=== PATIENT | female | born 1965 | race Two or more races ===

== ENCOUNTER 2019-04-19 17:27 | Emergency (ER) | payer SELFPAY ==
[~2019-04-19] VITALS: Ht 170.2 cm; Wt 79.4 kg
[~2019-04-19 17:27] MED LIST: OXYC1TAB15 PO
[2019-04-19 17:50] LABS: BILIRUBIN,URINE NEGATIVE (NEG); CLARITY,URINE CLEAR; COLOR,URINE YELLOW; NITRITE,URINE NEGATIVE (NEG); PROTEIN,URINE 30 mg/dL (NEG-TRACE); UROBILINOGEN,URINE 0.2 mg/dL (0.2 mg/dL)
[2019-04-19 17:58] LABS: RBC,URINE TNTC /HPF (0-2); SQUAMOUS EPITHELIAL CELL,UR FEW /LPF; WBC,URINE 20-40 /HPF (0-4)
[2019-04-19 17:59] LABS: BACTERIA,URINE 0 /HPF (0-FEW)
[2019-04-19] MEDS ORDERED: IV NORMAL SALINE 1000ML BAG 1,000 ML IV ONE (19:00)
[2019-04-19] MEDS ORDERED: cefTRIAXone IV Push 1 GM VIAL. IVP ONE (19:00)
--- NOTE | 2019-04-19 19:06 | RAD ---
CT abdomen and pelvis without contrast HISTORY: Hematuria CT scan the abdomen and pelvis was done without contrast. Lung bases are clear. There is no pleural effusion. A liver lesion is not identified. Patient's had a cholecystectomy. Spleen and adrenal glands are normal. Pancreas is normal. There is no mass or hydronephrosis in the kidneys. A ureteral calculus is not identified. Bowel pattern is normal. Appendix is generous in size but otherwise normal in appearance without inflammation. There is no bowel obstruction or ascites. Uterus and ovaries are normal. IMPRESSION: 1. No renal or ureteral calculus noted. 2. Bladder has a normal appearance. 3. Uterus and ovaries are normal. 4. Normal appendix. 5. No bowel obstruction or other acute finding. Electronically signed by: Fletcher Akins MD (04/19/2019 7:04 PM) [facility]
[2019-04-19 19:36] LABS: BASO # 0.1 x10^3/uL (0.0-0.2); BASO % 1 % (0-3); EOS % 0 % (0-3); HEMATOCRIT 38.6 % (36.0-47.0); HEMOGLOBIN 13.4 g/dL (12.0-15.5); LYMPH # 1.2 x10^3/uL (1.0-4.8); LYMPH % 13 % (24-48); MEAN CORPUSCULAR HEMOGLOBIN 32 pg (25-35); MEAN CORPUSCULAR HGB CONC 35 g/dL (31-37); MEAN CORPUSCULAR VOLUME 91 fL (79-100); MONO # 0.7 x10^3/uL (0.0-1.1); MONO % 7 % (0-9); NEUT # 7.6 x10^3uL (1.8-7.7); NEUT % 79 % (31-73); PLATELET COUNT 141 x10^3/uL (140-400); RED BLOOD COUNT 4.24 x10^6/uL (3.50-5.40); RED CELL DISTRIBUTION WIDTH 12.7 % (11.5-14.5); WHITE BLOOD COUNT 9.6 x10^3/uL (4.0-11.0)
[2019-04-19 19:46] LABS: CALCIUM 9.1 mg/dL (8.5-10.1); CREATININE 0.7 mg/dL (0.6-1.0); GFR 87.5; POTASSIUM 3.8 mmol/L (3.5-5.1)
[2019-04-19 19:51] LABS: ALBUMIN 3.9 g/dL (3.4-5.0); TOTAL BILIRUBIN 0.6 mg/dL (0.2-1.0)
[2019-04-19] MEDS ORDERED: fentaNYL PF VIAL 100 MCG/2 ML VIAL IV ONE (20:00)
[2019-04-19] MEDS ORDERED: PHENAZOPYRIDINE 200 MG TABLET. PO ONE (20:00)
[2019-04-19] MEDS ORDERED: ONDANSETRON PF 4 MG/2 ML VIAL. IV ONE (20:00)
--- NOTE | 2019-04-19 20:58 | PHYS DOC ---
Past Medical History Past Medical History: UTI Past Surgical History: Cholecystectomy Alcohol Use: None Drug Use: None Adult General Chief Complaint Chief Complaint: BLOOD IN URINE HPI HPI 53-year-old female presents to ER via POV for complaints of dysuria, hematuria, and lower abdominal pain. Patient reports she felt fine yesterday and woke this morning around 8 AM having urinary urgency and dysuria. Patient developed hematuria through the day. She denies fever, past history of kidney stones, or vaginal symptoms. Patient reports she has been postmenopausal for the past 2 years. Patient states she has had some lower back pain and intermittent nausea. She denies any vomiting or diarrhea episodes. Pt speaks primarily Occitan so Lydia RN at bedside for translation. Review of Systems Review of Systems Constitutional: Denies fever or chills [] Eyes: Denies change in visual acuity, redness, or eye pain [] HENT: Denies nasal congestion or sore throat [] Respiratory: Denies cough or shortness of breath [] Cardiovascular: No additional information not addressed in HPI [] GI: Denies abdominal pain, nausea, vomiting, bloody stools or diarrhea [] : Reports dysuria/hematuria and urinary urgency. Denies vaginal sxs Musculoskeletal: Denies joint pain. Reports lower back pain- side to side Integument: Denies rash or skin lesions [] Neurologic: Denies headache, focal weakness or sensory changes All other systems were reviewed and found to be within normal limits, except as documented in this note. Current Medications Current Medications Current Medications Medications (Trade) Dose Ordered Sig/Karley Start Time Stop Time Status Last Admin Dose Admin Ceftriaxone Sodium (Rocephin) 1 gm 1X ONCE 04/19/19 19:00 04/19/19 19:01 DC 04/19/19 19:21 1 GM Fentanyl Citrate (Fentanyl 2ml Vial) 25 mcg 1X ONCE 04/19/19 20:00 04/19/19 20:01 DC 04/19/19 20:17 25 MCG Ondansetron HCl (Zofran) 4 mg 1X ONCE 04/19/19 20:00 04/19/19 20:01 DC 04/19/19 20:16 4 MG Phenazopyridine HCl (Pyridium) 100 mg 1X ONCE 04/19/19 20:00 04/19/19 20:01 DC 04/19/19 20:15 100 MG Sodium Chloride 1,000 ml @ 1,000 mls/hr 1X ONCE 04/19/19 19:00 04/19/19 19:59 DC 04/19/19 19:20 1,000 MLS/HR Allergies Allergies Allergies Coded Allergies Type Severity Reaction Last Updated Verified No Known Drug Allergies 10/27/14 No Physical Exam Physical Exam Constitutional: Well developed, well nourished, no acute distress, non-toxic appearance. [] HENT: Normocephalic, atraumatic, oropharynx moist, nose normal. [] Eyes: Pupils equal, conjunctiva normal, no discharge. [] Neck: Normal range of motion, no tenderness, supple, no stridor. [] Cardiovascular: Heart rate regular rhythm, no murmur [] Lungs & Thorax: Bilateral breath sounds clear to auscultation. Resp. equal/nonlabored Abdomen: Bowel sounds normal, soft, no distention/rigidity/rebound tenderness. Tender across lower abd, no masses, no pulsatile masses. [] Skin: Warm, dry, no erythema, no rash. [] Back: No tenderness, bilat. CVA tenderness- no swelling Extremities: No tenderness, no cyanosis, no clubbing, ROM intact, no edema. [] Neurologic: Alert and oriented X 3, normal motor function, normal sensory functi on, no focal deficits noted. [] Psychologic: Affect normal, judgement normal, mood normal. [] Current Patient Data Vital Signs Vital Signs Date Time Temp Pulse Resp B/P (MAP) Pulse Ox O2 Delivery O2 Flow Rate FiO2 04/19/19 20:17 16 04/19/19 19:10 98.3 65 114/54 (74) 94 Room Air 98.3 Lab Values Laboratory Tests Test 04/19/19 17:32 04/19/19 17:37 04/19/19 18:32 04/19/19 19:24 Urine Test Negative (NEG) Urine Collection Type Unknown Urine Color Yellow Urine Clarity Clear Urine pH 6.0 Urine Specific [place] 1.010 Urine Protein 30 mg/dL (NEG-TRACE) Urine Glucose (UA) Negative mg/dL (NEG) Urine Ketones (Stick) Negative mg/dL (NEG) Urine Blood Large (NEG) Urine Nitrite Negative (NEG) Urine Bilirubin Negative (NEG) Urine Urobilinogen Dipstick 0.2 mg/dL (0.2 mg/dL) Urine Leukocyte Esterase Moderate (NEG) Urine RBC Tntc /HPF (0-2) Urine WBC 20-40 /HPF (0-4) Urine Squamous Epithelial Cells Few /LPF Urine Bacteria 0 /HPF (0-FEW) Urine Mucus Slight /LPF Sodium Level 137 mmol/L (136-145) Potassium Level 3.8 mmol/L (3.5-5.1) Chloride Level 103 mmol/L (98-107) Carbon Dioxide Level 26 mmol/L (21-32) Anion Gap 8 (6-14) Blood Urea Nitrogen 13 mg/dL (7-20) Creatinine 0.7 mg/dL (0.6-1.0) Estimated GFR (Cockcroft-Gault) 87.5 BUN/Creatinine Ratio 19 (6-20) Glucose Level 104 mg/dL (70-99) H Calcium Level 9.1 mg/dL (8.5-10.1) Magnesium Level 2.0 mg/dL (1.8-2.4) Total Bilirubin 0.6 mg/dL (0.2-1.0) Aspartate Amino Transferase (AST) 29 U/L (15-37) Alanine Aminotransferase (ALT) 39 U/L (14-59) Alkaline Phosphatase 97 U/L (46-116) Total Protein 8.0 g/dL (6.4-8.2) Albumin 3.9 g/dL (3.4-5.0) Albumin/Globulin Ratio 1.0 (1.0-1.7) White Blood Count 9.6 x10^3/uL (4.0-11.0) Red Blood Count 4.24 x10^6/uL (3.50-5.40) Hemoglobin 13.4 g/dL (12.0-15.5) Hematocrit 38.6 % (36.0-47.0) Mean Corpuscular Volume 91 fL (79-100) Mean Corpuscular Hemoglobin 32 pg (25-35) Mean Corpuscular Hemoglobin Concent 35 g/dL (31-37) Red Cell Distribution Width 12.7 % (11.5-14.5) Platelet Count 141 x10^3/uL (140-400) Neutrophils (%) (Auto) 79 % (31-73) H Lymphocytes (%) (Auto) 13 % (24-48) L Monocytes (%) (Auto) 7 % (0-9) Eosinophils (%) (Auto) 0 % (0-3) Basophils (%) (Auto) 1 % (0-3) Neutrophils # (Auto) 7.6 x10^3uL (1.8-7.7) Lymphocytes # (Auto) 1.2 x10^3/uL (1.0-4.8) Monocytes # (Auto) 0.7 x10^3/uL (0.0-1.1) Eosinophils # (Auto) 0.0 x10^3/uL (0.0-0.7) Basophils # (Auto) 0.1 x10^3/uL (0.0-0.2) Laboratory Tests 04/19/19 19:24 Laboratory Tests 04/19/19 18:32 EKG EKG [] Radiology/Procedures Radiology/Procedures PROCEDURE: CT ABDOMEN PELVIS WO CONTRAST CT abdomen and pelvis without contrast HISTORY: Hematuria CT scan the abdomen and pelvis was done without contrast. Lung bases are clear. There is no pleural effusion. A liver lesion is not identified. Patient's had a cholecystectomy. Spleen and adrenal glands are normal. Pancreas is normal. There is no mass or hydronephrosis in the kidneys. A ureteral calculus is not identified. Bowel pattern is normal. Appendix is generous in size but otherwise normal in appearance without inflammation. There is no bowel obstruction or ascites. Uterus and ovaries are normal. IMPRESSION: 1. No renal or ureteral calculus noted. 2. Bladder has a normal appearance. 3. Uterus and ovaries are normal. 4. Normal appendix. 5. No bowel obstruction or other acute finding. Electronically signed by: Fletcher Ashford MD (04/19/2019 7:04 PM) [facility] DICTATED and SIGNED BY: FLETCHER ASHFORD MD DATE: 04/19/191903 Course & Med Decision Making Course & Med Decision Making Pertinent Labs and Imaging studies reviewed. (See chart for details) 2049: Reevaluation patient reports she is feeling much better following treatments received. Patient was evaluated in the ER for urinary symptoms and lower abdominal pain. Labs unremarkable with NL WBCs/renal function. UA with lg blood/mod leuks and 20-[address] abd/pelvis was negative for acute findings/renal stones/obstruction- appendix was visualized "generous in size" however no surrounding inflammation or report of finding suggestive of appendicitis. Discussed UTI and plans for prescription with discharge paperwork for Keflex and Pyridium. Patient received IV Rocephin 1 gm while in the ER. Patient remains nontoxic in appearance and in no visible distress at this time. Test results were discussed with patient with family at bedside. Education provided on signs and symptoms to return to ER. Discharge instructions were discussed. Patient to follow-up with primary care physician if symptoms persist or with any concerns. Neg. UCG on UA. [place] Disclaimer Rodolfo Disclaimer This electronic medical record was generated, in whole or in part, using a voice recognition dictation system. Departure Departure Impression: Primary Impression: Urinary tract infection Additional Impression: Abdominal pain Disposition: HOME, SELF-CARE Condition: STABLE Referrals: NO PCP (PCP) Patient Instructions: Abdominal Pain, Urinary Tract Infection Additional Instructions: Drink plenty of water daily. Tylenol and/or ibuprofen as needed for pain as directed on container. If symptoms persist follow-up with your primary care physician for reevaluation and further care. Scripts Cephalexin (KEFLEX) 500 Mg Capsule 1 CAP PO BID, #14 CAP 0 Refills Prov: NETTA CARSON APRN 04/19/19 Phenazopyridine Hcl (PYRIDIUM) 100 Mg Tablet 100 MG PO TID PRN for PAIN, #10 TAB 0 Refills Prov: NETTA CARSON APRN 04/19/19 Problem Qualifiers NETTA CARSON APRN Apr 19, 2019 20:58
[2019-04-19 21:00] VITALS: BP 100/50
[2019-04-19] MEDS ORDERED: CEPH-264 PO (21:05)
[2019-04-19] MEDS ORDERED: PHEN100T82 PO (21:05)
[2019-04-19 21:14] LABS: U PREG PATIENT NEGATIVE (NEG)
== END 2019-04-19 21:15 | disposition home or self-care (01) ==
LOC: ER 17:27
DX: N39.0 Urinary tract infection, site not specified (principal); Z90.49 Acquired absence of other specified parts of digestive tract
CPT/HCPCS: 36415; 74176; 80053; 81001; 81025; 83735; 85025; 96374; 96375; 99285; J0696; J2405; J3010; J7030